=== PATIENT | male | born 1970 | race Caucasian/White ===

== ENCOUNTER 2017-10-17 08:34 | Day surgery (SDC) | payer OTHER ==
[~2017-10-17 08:34] MED LIST: BUPIVACAINE 0.5%-EPI 1:200000 PF 30 ML VIAL ONE; LIDOCAINE 1% 50 ML MDV ONE; LIDOCAINE OINTMENT 5% 35.44 GM TUBE ONE
[2017-10-17] MEDS ORDERED: LACTATED RINGERS 1,000 ML IV ONE ×2 (08:58→10:45)
[2017-10-17] MEDS ORDERED: MIDAZOLAM 2 MG/2 ML VIAL IVP ONE (10:40)
[2017-10-17] MEDS ORDERED: KETOROLAC 30 MG/ML VIAL IVP ONE (10:40)
[2017-10-17] MEDS ORDERED: LIDOCAINE-MPF 2% 5 ML VIAL IM ONE (10:40)
[2017-10-17] MEDS ORDERED: PROPOFOL 200 MG/20 ML VIAL IVP ONE (10:40)
[2017-10-17] MEDS ORDERED: DEXAMETHASONE 4 MG/ML VIAL IVP ONE (10:40)
[2017-10-17] MEDS ORDERED: ONDANSETRON 4 MG/2 ML VIAL IVP ONE (10:40)
[2017-10-17] MEDS ORDERED: fentaNYL 100 MCG/2 ML VIAL IVP ONE (10:40)
[2017-10-17] MEDS ORDERED: BUPIVACAINE 0.5%-EPI 1:200000 PF 30 ML VIAL SUBQ ONE ×2 (10:45)
[2017-10-17] MEDS ORDERED: LIDOCAINE OINTMENT 5% 35.44 GM TUBE TOP ONE (10:45)
--- NOTE | 2017-10-17 11:38 | OPERATIVE REPORT ---
Operative Report - General Procedure Date: 10/17/17 Planned Procedure: Exam under anesthesia, anal dilation and anal fissurectomy Pre-Op Diagnosis: Recurrent and persistent anal fissure Procedure Performed: Exam under anesthesia, anal dilation and anal fissurectomy Post Op Diagnosis: Recurrent and persistent anal fissure - Procedure Note Primary Surgeon: Teto Oropeza MD Anesthesia Provider: Moe Robins CRNA Anesthesia Technique: General LMA, Local (30 mL 1/2% marcaine) IV Fluids (mL): 1,000 Estimated Blood Loss (mL): 1 Complications: OPERATIVE DESCRIPTION/REPORT: After verbal and written informed consent was obtained detailing the risks of infection, bleeding requiring transfusion with its risks, nerve injury, and , and after I met with the patient confirming the surgery and the site of the surgery, the patient was brought to the operative suite and placed supine on the operating table. Great care was taken to avoid pressure points to prevent pressure necrosis or nerve injury. Monitoring devices were applied along with TEDs and pneumatic compressive stockings (to prevent DVT). The patient received preoperative antibiotics for surgical prophylaxis. [ anesthesiologist] sedated and anethetized the patient for the entire procedure. The patient was then placed prone in the diandra-knife position, again taking care to ensure that we prevented pressure point. The patients buttocks were taped apart and the patient was prepped and draped in the usual sterile manner. A "time in" then confirmed that the paitient was identified with 3 identifiers (name, birthdate and medical record number), the history and physical was in the chart, the signed consent confirming the procedure was in the chart, the patient was in the correct position, the aforementioned prophylactic measures were in place or given, we had the correct personnel and equipment to complete the procedure and that anesthesia, surgery and nursing were given an opportunity to express any concerns. With the agreement of everyone in the room, we proceeded with the operation. The anorectum was injected circumferentially with % marcaine. A large external hemorrhoid was excised using serial application of the Harmonic scalpel , as it would not be addressed by the PPH technique. The PPH kit was obtained and opened. The anal retractor and dilator were placed in the patients anus after thoroughly lubricating them with a water-soluble lubricant. The retractor was held in place to the patients buttocks with 2 2-0 Prolene sutures. The dilator was removed and the tapered appliance was inserted. 4 cm was clearly marked on the appliance measuring from the dentate line. The dentate line was clearly protected behind the retractor. A 2-0 Prolene was then used to sew a purse-string at 4 cm from the dentate line using the tapered appliance as a guide and retractor. The purse string was completed through over 360 degrees to ensure that there were no skipped areas. The purse-string was tested by pulling on the two ends of the suture and feeling the purse- string contract against my finger. It was noted to be complete without any missed areas. The anvil was inserted past the purse-string feeling the ``pop as it passed it. The purse-string was then tied tight around the post and the ends of the suture brought up and tied through the orange hole in the anvil. The anvil was then inserted into the stapling device and the stapler was then screwed down tight. Three minutes were allowed to elapse to allow for emptying of the tissues of blood. The stapler was fired and removed from the anus. A complete ``donut was retrieved from around the post of the stapler, and this was sent in to pathology. Digital examination confirmed a circumferential stapling. Visual inspection confirmed hemostasis. A roll of gelfoam and lidocaine jelly was fashioned and inserted into the patients anus. The perianal area was again injected with the remaining % marcaine. At this point a time out was performed that confirmed that all the counts were correct, the procedure that was performed, the blood loss, the IV fluids administered, and the patients condition. Having tolerated the procedure well, the patient was subsequently taken to short stay in good and stable condition. I inserted my finger in the vagina to ensure that the vaginal mucosa was not included in the stapler and it was not. Slight bleeding was noted anteriorly and this was controlled with a 2-0 Vicryl figure of eight stitch. The stitch also did not involve the vaginal mucosa. With the stitch in place hemostasis was noted.
[2017-10-17 12:30] VITALS: BP 119/72
== END 2017-10-17 08:35 | disposition home or self-care (01) ==
LOC: SDS 08:34
PROVIDERS: ATTEND Surgery
PROC: 06BY3ZC Excision of Hemorrhoidal Plexus, Percutaneous Approach (ICD-10-PCS; 2017-10-17)
PROC: 0DBQ7ZZ Excision of Anus, Via Natural or Artificial Opening (ICD-10-PCS; principal; 2017-10-17 09:45)
DX: K60.2 Anal fissure, unspecified (principal); K64.4 Residual hemorrhoidal skin tags
CPT/HCPCS: 46200; 46999; A9270; J7120